=== PATIENT | female | born 1995 | race Caucasian/White ===

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

== ENCOUNTER → 2017-12-20 14:33 | Observation (INO) ==
[2017-12-20 12:22] LABS: Bilirubin,Urine Negative (Negative); Blood,Urine Negative (Negative); Clarity,Urine Cloudy (Clear); Color,Urine Yellow (Yellow); Glucose,Urine (UA) Normal (Normal); Ketones,Urine Negative (Negative); Leukocyte Esterase,Urine Moderate (Negative); Nitrite,Urine Negative (Negative); PH,Urine 6.5 pH Units (5.0-8.0); Protein,Urine Negative (Neg-Trace); Specific Gravity,Urine 1.016 (1.010-1.025); Urobilinogen,Urine Normal (Normal)
[2017-12-20 12:25] LABS: Bacteria,Urine Many per hpf (None-Few); Squamous Epithelial Cell,Urine Many per lpf (None-Few); WBC,Urine 30-50 per hpf (0-3)
[2017-12-20 12:40] LABS: Hyaline Casts,Urine None Seen per lpf (None-Few); RBC,Urine 0-3 per hpf (0-3)
[2017-12-20 12:41] LABS: Amphetamine Screen,Urine Negative ng/mL (Cutoff=1000); Barbiturate Screen,Urine Negative ng/mL (Cutoff=200); Benzodiazepines Screen,Urine Negative ng/mL (Cutoff=200); Cannabinoid Screen,Urine Negative ng/mL (Cutoff = 50); Cocaine Screen,Urine Negative ng/mL (Cutoff= 300); Opiate Screen,Urine Negative ng/mL (Cutoff=300); Phencyclidine Screen,Urine Negative ng/mL (Cutoff=25)
--- NOTE | 2017-12-20 14:36 | OB/GYN Progress Note ---
Date of Encounter: 12/20/17 Time of Encounter: 14:34 - Assessment and Plan (1) 28 weeks gestation of Current Visit: Yes Status: Acute heart rate reassuring for gestation age. Kick counts reviewed. Discharge home with precautions. Plan discussed with Dr. Ordaz. (2) False labor Current Visit: Yes Status: Acute Pt reports contractions resolved prior to arrival. Cervix unchanged and closed/thick/high. Pt requesting a work excuse. Discharge home with return precautions. (3) UTI (urinary tract infection) Current Visit: Yes Status: Acute Pt notes small amount of blood with wiping. Denies dysuria. UA with moderate leukocytes and WBCs. Will treat empirically. Will follow Cx. Qualifiers: Urinary tract infection type: acute cystitis Hematuria presence: with hematuria Qualified Code(s): N30.01 - Acute cystitis with hematuria Subjective - Subjective Principal diagnosis: Contractions Interval history: 22 y/o that presented with c/o of contractions that were irregular and she was unable to time them. She reports they improved by the time she got here. Denies LOF. She notes small amount of pink to brown discharge upon wiping after going to the restroom; denies any other VB. Denies urinary symptoms. Report good FM. Antepartum ROS: movement normal, contractions, no loss of fluid Objective - Vital Signs Vital Signs: Intake and Output 12/19/17 12/20/17 12/20/17 23:59 07:59 15:59 Other: Weight 212.2 kg Patient Weight 12/20/17 23:59 Weight 212.2 kg - Exam FHR: auscultation normal FHR comments: FHR reassuring for gestational age, accelerations present. Tracing reviewed by Dr. Ordaz. Auscultation: bilateral: normal Abdomen: Present: normal appearance, soft, gravid Cervical dilation: closed Cervix effacement: thick station: high - Labs Labs: Abnormal lab results Urine Clarity Cloudy (Clear) A 12/20/17 12:01 Ur Leukocyte Esterase Moderate (Negative) H 12/20/17 12:01 Urine Microscopic WBC 30-50 per hpf (0-3) H 12/20/17 12:01 Ur Squamous Epith Cells Many per lpf (None-Few) H 12/20/17 12:01 Urine Bacteria Many per hpf (None-Few) H 12/20/17 12:01 Ur Culture Indicated? NO. (NO) A 12/20/17 12:01
== END | disposition home or self-care (01) ==
LOC: 1NENULAB
PROVIDERS: ADMIT Registered Nurse; ATTEND Registered Nurse

== ENCOUNTER 2018-02-13 16:33 | Observation (INO) ==
[2018-02-13 17:30] LABS: Amphetamine Screen,Urine Negative ng/mL (Cutoff=1000); Barbiturate Screen,Urine Negative ng/mL (Cutoff=200); Benzodiazepines Screen,Urine Negative ng/mL (Cutoff=200); Bilirubin,Urine Negative (Negative); Blood,Urine Negative (Negative); Cannabinoid Screen,Urine Negative ng/mL (Cutoff = 50); Clarity,Urine Clear (Clear); Cocaine Screen,Urine Negative ng/mL (Cutoff= 300); Color,Urine Yellow (Yellow); Glucose,Urine (UA) Normal (Normal); Ketones,Urine Negative (Negative); Leukocyte Esterase,Urine Negative (Negative); Nitrite,Urine Negative (Negative); Opiate Screen,Urine Negative ng/mL (Cutoff=300); Phencyclidine Screen,Urine Negative ng/mL (Cutoff=25); Protein,Urine Negative (Neg-Trace); Specific Gravity,Urine 1.011 (1.010-1.025); Urobilinogen,Urine Normal (Normal)
--- NOTE | 2018-02-13 17:54 | Discharge Summary ---
Date of Encounter: 02/13/18 Time of Encounter: 17:53 - Discharge Diagnosis (1) NST (non-stress test) reactive on surveillance Priority: Secondary Status: Acute Comments: Reactive nst;FHR 140 bpm moderate variability +15x15 accels no decels noted. Cat. 1 tracing (2) 36 weeks gestation of Priority: Primary Status: Acute Comments: admitted for labor observation (3) Vaginal pain Priority: Secondary Status: Acute Comments: labor evaluation - Discharge Medications Home Medications: Vit Calc,Iron,Folic [ Vitamins] 1 tab PO DAILY 12/20/17 [History] raNITIdine HCl [Zantac] 1 tab PO BID 02/13/18 [History] Allergies/Adverse Reactions: Allergy/AdvReac Type Severity Reaction Status Date / Time No Known Allergies Allergy Verified 02/13/18 16:52 Data Procedures and tests throughout hospitalization: Laboratory Tests 02/13/18 02/13/18 17:04 17:04 Urine Color Yellow Urine Clarity Clear Urine pH 7.0 Ur Specific [place] 1.011 Urine Protein Negative Urine Glucose (UA) Normal Urine Ketones Negative Urine Blood Negative Urine Nitrite Negative Urine Bilirubin Negative Urine Urobilinogen Normal Ur Leukocyte Esterase Negative Ur Culture Indicated? NO Urine Opiates Screen Negative Ur Barbiturates Screen Negative Ur Phencyclidine Scrn Negative Ur Amphetamines Screen Negative U Benzodiazepines Scrn Negative Urine Cocaine Screen Negative U Marijuana (THC) Screen Negative Ur Drug Screen Interp See Below Labs on day of discharge: Labs from last 24 hours 02/13/18 02/13/18 17:04 17:04 Urine Color Yellow Urine Clarity Clear Urine pH 7.0 Ur Specific [place] 1.011 Urine Protein Negative Urine Glucose (UA) Normal Urine Ketones Negative Urine Blood Negative Urine Nitrite Negative Urine Bilirubin Negative Urine Urobilinogen Normal Ur Leukocyte Esterase Negative Ur Culture Indicated? NO Urine Opiates Screen Negative Ur Barbiturates Screen Negative Ur Phencyclidine Scrn Negative Ur Amphetamines Screen Negative U Benzodiazepines Scrn Negative Urine Cocaine Screen Negative U Marijuana (THC) Screen Negative Ur Drug Screen Interp See Below Date of admission: 02/13/18 16:33 Discharging clinician: Kamini Lund Anticipated date of discharge: 02/13/18 - Patient Status Disposition: Home, Self-Care Condition: Good Functional capacity at discharge: independent ambulation - Discharge Instructions Follow Up With: Padmini Freeman MD [Partnered Physician] - - Diet and Activity Activity: increase activity as tolerated Diet: regular diet Hospital Course [employer] Hospital course: Patient is a 22 y/o at 36w4d presents to labor and delivery with complaints of vaginal pressure that comes and goes about every 10 min for the past few hours. Patient reports +FM, denies dysuria, urinary frequency or vaginal bleeding. Patient did report an increase in discharge without itching or burning. Nitrazine was negative. SVE per RN was 1 cm. Time Attestation: Total time spent providing and/or coordinating discharge services: Time Spent: Less than 30 minutes Exam - Constitutional General appearance IM: A&O X 3, pleasant, answers questions appropriately - Respiratory Respiratory exam: Present: CTAB - Cardiovascular Cardiovascular exam IM: Present: RRR, +S1, +S2 - GI/Abdominal GI/Abdominal exam IM: normal bowel sounds - Additional comments: soft, gravid - Extremities Exam Extremities exam IM: Present: full ROM, normal capillary refill, normal inspection - Neurological Exam Neurological exam: alert, oriented X3, reflexes normal - Other Additional findings: FHR 140 bpm moderate variability 15x15 accels no decels noted. Occasional contraction noted. Cat. 1 tracing. - VTE Reasons for not Prescribing Prophylaxis: Treatment not Indicated - Low risk for VTE
== END 2018-02-13 18:05 | disposition home or self-care (01) ==
LOC: 1NENULAB
PROVIDERS: ADMIT Advanced Practice Midwife; ATTEND Advanced Practice Midwife